=== PATIENT | female | born 1960 | race Caucasian/White ===

== ENCOUNTER 2020-05-25 15:20 | Emergency (ER) | payer MEDICARE, OTHER ==
[~2020-05-25] VITALS: Ht 167.6 cm; Wt 138.3 kg
[2020-05-25 15:57] LABS: BASOPHILS ABSOLUTE AUTO 0.02 K/mm3 (0.00-0.23); BASOPHILS PERCENT AUTO 0 % (0-2); EOSINOPHILS PERCENT AUTO 0 % (0-6); Hematocrit 45.4 % (33.0-51.0); Hemoglobin 15.7 g/dL (11.5-16.0); IMMATURE GRAN ABSOLUTE AUTO 0.07 K/mm3 (0.00-0.10); IMMATURE GRAN PERCENT AUTO 0 % (0-1); LYMPHOCYTES ABSOLUTE AUTO 1.33 K/mm3 (0.84-5.20); LYMPHOCYTES PERCENT AUTO 8 % (21-46); MONOCYTES ABSOLUTE AUTO 0.96 K/mm3 (0.16-1.47); MONOCYTES PERCENT AUTO 6 % (4-13); Mean Corpuscular HGB 32.4 pg (26.0-34.0); Mean Corpuscular HGB Conc 34.6 g/dL (31.5-36.5); Mean Corpuscular Volume 94 fL (80-100); Mean Platelet Volume 10.5 fL (9.1-12.4); NEUTROPHILS ABSOLUTE AUTO 13.76 K/mm3 (1.96-9.15); NEUTROPHILS PERCENT AUTO 85 % (41-73); Platelet Count 284 K/mm3 (150-400); RDW Coefficient Variation 12.5 % (11.7-14.2); RDW Standard Deviation 43.5 fL (35.1-46.3); Red Blood Cell Count 4.84 M/mm3 (3.80-5.20); White Blood Cell Count 16.14 K/mm3 (4.00-11.30)
[2020-05-25 16:20] LABS: Alanine Aminotransfer (ALT/SGP 33 U/L (12-78); Albumin, Blood 4.1 g/dL (3.4-5.0); Albumin/Globulin Ratio 1.2 (0.8-1.8); Alk Phos 98 U/L (50-136); Anion Gap 7 mmol/L (6-16); Aspartate Aminotrans (AST/SGOT 13 U/L (12-37); Bilirubin, Total 0.7 mg/dL (0.1-1.0); Blood Urea Nitrogen 18 mg/dL (8-24); Bun/Creatinine Ratio 23.1 (12.0-20.0); CO2, Blood 26 mmol/L (21-32); Calcium, Blood 9.3 mg/dL (8.5-10.1); Chloride, Blood 105 mmol/L (98-108); Creatinine, Blood 0.78 mg/dL (0.40-1.00); Globulin, Blood 3.5 g/dL (2.2-4.0); Glomerular Filtration Rate >60 (60-); Glucose, Blood 143 mg/dL (70-99); Potassium, Blood 3.5 mmol/L (3.5-5.5); Sodium, Blood 138 mmol/L (136-145); Total Protein, Blood 7.6 g/dL (6.4-8.2)
[2020-05-25 20:57] LABS: Source, Urine Voided
[2020-05-25 20:59] LABS: Appearance, Urine Clear (Clear); Bilirubin, Urine Neg (Neg); Blood, Urine 2+ (Neg); Color, Urine Yellow (P-Yellow); Glucose Qualitative, Urine 1+ (Neg); Ketones, Urine 3+ (Neg); Leukocyte Esterase, Urine Neg (Neg); Nitrite, Urine Neg (Neg); Protein, Urine 1+ (Neg); Urobilinogen, Urine NORM (Normal)
[2020-05-25 21:06] LABS: Bacteria Few /hpf; Squamous Epithelial Cells Few /hpf (Few); White Blood Cells, Urine 0-2 /hpf (0-5)
[2020-05-25 21:10] LABS: U Amphetamine Screen Not Detected; U Barbituate Screen DETECTED; U Benzodiazapine Screen DETECTED; U Buprenorphine Screen Not Detected; U Cannabinoids Screen DETECTED; U Cocaine Screen Not Detected; U Methadone Screen Not Detected; U Methamphetamine Screen Not Detected; U Opiates Screen Not Detected; U Oxycodone Screen Not Detected; U Phencyclidine Screen Not Detected; U Propoxyphene Screen Not Detected
[2020-05-25] MEDS ORDERED: PEPCID40 MG PO (22:18)
== END 2020-05-25 22:22 | disposition home or self-care (01) ==
LOC: ER 15:20
PROVIDERS: Emergency Medicine
DX: A08.2 Adenoviral enteritis (principal); F43.10 Post-traumatic stress disorder, unspecified; G47.30 Sleep apnea, unspecified; Z91.030 Bee allergy status
CPT/HCPCS: 36415; 71046; 74177; 80053; 81001; 83605; 85025; 96361; 96374; 96375; 99284-25; C9113; J1200; J2405; J2765; J7030; Q9967

== ENCOUNTER → 2020-09-04 | Outpatient (CLI) | payer MEDICARE, OTHER ==
[~2020-09-04] MED LIST: PEPCID40 MG PO
[2020-09-04 09:47] LABS: Source, Urine Clean Catch
[2020-09-04 10:03] LABS: Red Blood Cells, Urine 0-2 /hpf (0-2)
[2020-09-04 10:04] LABS: Bacteria Few /hpf; Squamous Epithelial Cells Many /hpf (Few)
== END ==
LOC: LAB SHORT 09:45 → PLD 09:45
PROVIDERS: Physician Assistant
DX: R31.29 Other microscopic hematuria (principal)
CPT/HCPCS: 81015

== ENCOUNTER 2021-04-08 10:08 | Emergency (ER) | payer MEDICARE ==
[~2021-04-08] VITALS: Ht 167.6 cm; Wt 138.3 kg
[2021-04-08] MEDS ORDERED: Norco 5-325 Ta1 EACH PO (11:26)
== END 2021-04-08 11:35 | disposition home or self-care (01) ==
LOC: ER 10:08
DX: R10.31 Right lower quadrant pain (principal); Z91.030 Bee allergy status
CPT/HCPCS: 93971; 99283-25

== ENCOUNTER 2022-08-21 12:31 | Emergency (ER) | payer OTHER, MEDICARE ==
[~2022-08-21] VITALS: Ht 165.1 cm; Wt 127.0 kg
[~2022-08-21 12:31] MED LIST changes: +Norco 5-325 Ta1 EACH PO
[2022-08-21] MEDS ORDERED: Prinivil10 MG PO (12:42)
[2022-08-21] MEDS ORDERED: QUET200 PO (12:42)
[2022-08-21] MEDS ORDERED: ESCI20 PO (12:43)
[2022-08-21] MEDS ORDERED: Citalopram HBr20 MG PO (12:43)
[2022-08-21] MEDS ORDERED: LORA1 PO (12:43)
[2022-08-21] MEDS ORDERED: MELO7.5 PO (20:14)
[2022-08-21] MEDS ORDERED: TRAM50 PO (20:15)
[2022-08-21] MEDS ORDERED: PANT20 (20:15)
[2022-08-21] MEDS ORDERED: CYCL10 PO ×2 (22:14)
== END 2022-08-21 15:45 | disposition left against medical advice (07) ==
LOC: ER 12:31
DX: M25.551 Pain in right hip (principal); W18.30XA Fall on same level, unspecified, initial encounter; I10 Essential (primary) hypertension
CPT/HCPCS: 73502; A9270; J1885

== ENCOUNTER 2022-08-21 19:58 | Emergency (ER) | payer OTHER, MEDICARE ==
[~2022-08-21] VITALS: Ht 167.6 cm; Wt 127.0 kg
[~2022-08-21 19:58] MED LIST changes: +Citalopram HBr20 MG PO; +ESCI20 PO; +LORA1 PO; +Prinivil10 MG PO; +QUET200 PO
[2022-08-21] MEDS ORDERED: MELO7.5 PO (20:14)
[2022-08-21] MEDS ORDERED: PANT20 (20:15)
[2022-08-21] MEDS ORDERED: TRAM50 PO (20:15)
[2022-08-21 20:59] LABS: BASOPHILS ABSOLUTE AUTO 0.02 K/mm3 (0.00-0.23); BASOPHILS PERCENT AUTO 0 % (0-2); EOSINOPHILS PERCENT AUTO 0 % (0-6); Hematocrit 42.7 % (33.0-51.0); Hemoglobin 14.9 g/dL (11.5-16.0); IMMATURE GRAN ABSOLUTE AUTO 0.03 K/mm3 (0.00-0.10); IMMATURE GRAN PERCENT AUTO 0 % (0-1); LYMPHOCYTES ABSOLUTE AUTO 1.55 K/mm3 (0.84-5.20); LYMPHOCYTES PERCENT AUTO 14 % (21-46); MONOCYTES ABSOLUTE AUTO 0.72 K/mm3 (0.16-1.47); MONOCYTES PERCENT AUTO 7 % (4-13); Mean Corpuscular HGB 33.2 pg (26.0-34.0); Mean Corpuscular HGB Conc 34.9 g/dL (31.5-36.5); Mean Corpuscular Volume 95 fL (80-100); Mean Platelet Volume 10.7 fL (9.1-12.4); NEUTROPHILS ABSOLUTE AUTO 8.65 K/mm3 (1.96-9.15); NEUTROPHILS PERCENT AUTO 79 % (41-73); Platelet Count 202 K/mm3 (150-400); RDW Coefficient Variation 12.5 % (11.7-14.2); RDW Standard Deviation 43.8 fL (35.1-46.3); Red Blood Cell Count 4.49 M/mm3 (3.80-5.20); White Blood Cell Count 10.97 K/mm3 (4.00-11.30)
[2022-08-21 21:56] LABS: Albumin, Blood 3.2 g/dL (3.4-5.0); Bilirubin, Total 0.6 mg/dL (0.1-1.0); Bun/Creatinine Ratio 15.4 (12.0-20.0); Calcium, Blood 9.5 mg/dL (8.5-10.1); Creatinine, Blood 1.36 mg/dL (0.40-1.00); Globulin, Blood 3.2 g/dL (2.2-4.0); Magnesium, Blood 2.1 mg/dL (1.6-2.4); Potassium, Blood 3.2 mmol/L (3.5-5.5); Total Protein, Blood 6.4 g/dL (6.4-8.2)
[2022-08-21] MEDS ORDERED: CYCL10 PO ×2 (22:14)
== END 2022-08-21 22:25 | disposition home or self-care (01) ==
LOC: ER 19:58
PROVIDERS: Student in an Organized Health Care Education/Training Program
DX: E87.6 Hypokalemia (principal); M62.831 Muscle spasm of calf; Z79.899 Other long term (current) drug therapy
CPT/HCPCS: 80053; 83735; 85025; A9270